=== PATIENT | male | born 1995 | race Caucasian/White ===

== ENCOUNTER 2018-04-17 08:59 | Emergency (ER) | payer OTHER ==
[~2018-04-17] VITALS: Ht 177.8 cm; Wt 104.5 kg
[2018-04-17 09:00] VITALS: BP 156/88
[2018-04-17] MEDS ORDERED: FLUORESCEIN OPHTH 1 MG STRIP OU ONE (09:30)
[2018-04-17] MEDS ORDERED: TETRACAINE 0.5% OPHTH SOLN 4ML OU ONE (09:30)
[2018-04-17] MEDS ORDERED: PRED20TA PO (09:43)
== END 2018-04-17 09:48 | disposition home or self-care (01) ==
LOC: M ED 08:59
DX: L30.9 Dermatitis, unspecified (principal); H05.223 Edema of bilateral orbit; H57.89 Other specified disorders of eye and adnexa; Q82.4 Ectodermal dysplasia (anhidrotic)

== ENCOUNTER → 2018-12-27 | Outpatient (REF) | payer OTHER ==
[~2018-12-27] MED LIST: PRED20TA PO
== END ==
LOC: M SFHCPLAZ 11:48
PROVIDERS: ATTEND Dermatology
DX: R21 Rash and other nonspecific skin eruption (principal)

== ENCOUNTER → 2019-05-17 | Outpatient (CLI) | payer OTHER | LOC: M LABSMTC 09:59 | PROVIDERS: ATTEND Family Medicine | DX: Z11.59 Encounter for screening for other viral diseases (principal); Z20.828 Contact with and (suspected) exposure to other viral communicable diseases ==

== ENCOUNTER 2020-08-11 08:47 | Day surgery (SDC) | payer OTHER ==
[~2020-08-11] VITALS: Ht 177.8 cm; Wt 116.3 kg
[2020-08-11] MEDS ORDERED: NS 1,000 ML IV SCH (10:30)
[2020-08-11 11:54] LABS: BASO # 0.1 10^3/uL (0.0-0.2); BASO % 1.2 % (0.0-1.0); EOS # 0.1 10^3/uL (0.0-0.5); EOS % 0.7 % (0.0-3.0); HEMATOCRIT 45.5 % (42.0-52.0); HEMOGLOBIN 15.2 g/dl (13.5-17.5); LYMPH % 22.7 % (24.0-44.0); MEAN CORPUSCULAR HEMOGLOBIN 28.3 pg (27.0-33.0); MEAN CORPUSCULAR HGB CONC 33.4 g/dl (32.0-36.5); MEAN CORPUSCULAR VOLUME 84.7 fl (80.0-96.0); MONO # 0.6 10^3/uL (0.0-0.8); MONO % 7.2 % (2.0-8.0); NEUTROPHILS # 5.8 10^3/uL (1.5-8.5); NEUTROPHILS % 67.6 % (36.0-66.0); PLATELET COUNT, AUTOMATED 266 10^3/uL (150-450); RED BLOOD COUNT 5.37 10^6/uL (4.30-6.10); WHITE BLOOD COUNT 8.6 10^3/uL (4.0-10.0)
[2020-08-11 13:00] LABS: ALBUMIN 4.1 GM/DL (3.2-5.2); BILIRUBIN,DIRECT 0.1 MG/DL (0.0-0.2); BILIRUBIN,TOTAL 0.4 MG/DL (0.2-1.0); TOTAL PROTEIN 7.4 GM/DL (6.4-8.2)
[2020-08-11 15:03] LABS: RSV AMPLIFICATION NEGATIVE (NEGATIVE)
[2020-08-11] MEDS ORDERED: LIDOCAINE 2% 100MG/5ML SDV (FOR ANES.) As Ordered ONE (17:01)
[2020-08-11] MEDS ORDERED: propofoL 200 MG/20 ML VIAL As Ordered ONE (17:01)
[2020-08-11] MEDS ORDERED: MIDAZOLAM INJ 2MG/2ML VIAL (J2250 PER 1MG) As Ordered ONE (17:02)
[2020-08-11] MEDS ORDERED: fentaNYL 100 MCG/2 ML INJECTION (J3010) As Ordered ONE (17:02)
[2020-08-11] MEDS ORDERED: SUCCINYLCHOLINE 100 MG/5 ML SYRINGE (J0330) As Ordered ONE (18:21)
[2020-08-11] MEDS ORDERED: ONDANSETRON 4MG/2ML VIAL IV PRN (18:35)
[2020-08-11] MEDS ORDERED: LR 1,000 ML IV SCH (18:35)
--- NOTE | 2020-08-11 18:53 | ROOR ---
Patient Name: Jose M Luis Procedure Date: 08/11/2020 4:46 PM Date of : 1995 Age: 25 Room: Main OR Gender: Male Note Status: Finalized Procedure: Upper GI endoscopy Indications: Hematemesis Providers: Eric Jj MD Referring MD: 3. Emergency Dept 3. Emergency Dept Requesting Provider: Medicines: Monitored Anesthesia Care Complications: No immediate complications. Procedure: Pre-Anesthesia Assessment: - Prior to the procedure, a History and Physical was performed, and patient medications and allergies were reviewed. The patient is competent. The risks and benefits of the procedure and the sedation options and risks were discussed with the patient. All questions were answered and informed consent was obtained. Patient identification and proposed procedure were verified by the physician, the nurse and the anesthesiologist in the procedure room. Mental Status Examination: alert and oriented. Airway Examination: normal oropharyngeal airway and neck mobility. Respiratory Examination: clear to auscultation. CV Examination: normal. Prophylactic Antibiotics: The patient does not require prophylactic antibiotics. Prior Anticoagulants: The patient has taken no previous anticoagulant or antiplatelet agents. ASA Grade Assessment: II - A patient with mild systemic disease. After reviewing the risks and benefits, the patient was deemed in satisfactory condition to undergo the procedure. The anesthesia plan was to use monitored anesthesia care (MAC). Immediately prior to administration of medications, the patient was re-assessed for adequacy to receive sedatives. The heart rate, respiratory rate, oxygen saturations, blood pressure, adequacy of pulmonary ventilation, and response to care were monitored throughout the procedure. The physical status of the patient was re-assessed after the procedure. The Endoscope was introduced through the mouth, and advanced to the second part of duodenum. The upper GI endoscopy was accomplished without difficulty. The patient tolerated the procedure well. Findings: LA Grade A (one or more mucosal breaks less than 5 mm, not extending between tops of 2 mucosal folds) esophagitis with no bleeding was found in the distal esophagus. Patchy moderate inflammation characterized by congestion (edema), erythema, friability and granularity was found in the gastric fundus and in the gastric antrum. Biopsies were taken with a cold forceps for Helicobacter pylori testing. Verification of patient identification for the specimen was done by the physician and nurse using the patient's name, date and medical record number. Estimated blood loss was minimal. The duodenal bulb and second portion of the duodenum were normal. Impression: - LA Grade A reflux esophagitis. - Gastritis. Biopsied. - Normal duodenal bulb and second portion of the duodenum. Recommendation: - Patient has a contact number available for emergencies. The signs and symptoms of potential delayed complications were discussed with the patient. Return to normal activities tomorrow. Written discharge instructions were provided to the patient. - High fiber diet. - Continue present medications. - Await pathology results. - Use Pepcid (famotidine) 20 mg PO Twice daily ( take event marketing coordinator on empty stomach and at bedtime) for 3 months. - Use sucralfate suspension 1 gram PO BID for 4 weeks. - Return to GI clinic in [facility] (address [address], [address], [place], [facility]) in 4 -- 6 weeks. Please call GI clinic @ [phone] for apppointment date and time. - Return to primary care physician. Procedure Code(s): --- Professional --- 20376, Esophagogastroduodenoscopy, flexible, transoral; with biopsy, single or multiple Diagnosis Code(s): --- Professional --- K21.0, Gastro-esophageal reflux disease with esophagitis K29.70, Gastritis, unspecified, without bleeding K92.0, Hematemesis CPT copyright 2019 [employer]. All rights reserved. The codes documented in this report are preliminary and upon dough mixer operator review may be revised to meet current compliance requirements. Eric Jj MD Eric Jj MD 08/11/2020 6:52:53 PM Electronically signed by Eric Jj MD Number of Addenda: 0 Note Initiated On: 08/11/2020 4:46 PM Estimated Blood Loss: Estimated blood loss was minimal.
[2020-08-11 19:25] VITALS: BP 155/74
== END 2020-08-11 19:25 | disposition home or self-care (01) ==
LOC: M ED 08:47 → M SDC 08:48
PROVIDERS: ATTEND Internal Medicine Gastroenterology
DX: K21.00 Gastro-esophageal reflux disease with esophagitis, without bleeding (principal); K29.70 Gastritis, unspecified, without bleeding; K92.0 Hematemesis; H05.10 Unspecified chronic inflammatory disorders of orbit; Q82.4 Ectodermal dysplasia (anhidrotic); Z91.040 Latex allergy status; Z79.899 Other long term (current) drug therapy
CPT/HCPCS: 43239; 80047; 80076; 83690; 85025; 87631; 88305; 96360; 99284; J0330; J2250; J3010

== ENCOUNTER → 2021-03-04 | Outpatient (REF) | LOC: M LABSMTC 11:01 | PROVIDERS: ATTEND Pediatrics | DX: Z11.52 Encounter for screening for COVID-19 (principal) ==

== ENCOUNTER 2022-08-07 07:03 | Emergency (ER) | payer BC, OTHER ==
[~2022-08-07] VITALS: Ht 177.8 cm; Wt 102.3 kg
[2022-08-07] MEDS ORDERED: IBUP200T46 PO (07:13)
[2022-08-07] MEDS ORDERED: ACET-683 PO (07:13)
[2022-08-07] MEDS ORDERED: AMOX875T2 PO (07:24)
[2022-08-07] MEDS ORDERED: AUGMENTIN 875 MG TAB PO ONE (07:25)
[2022-08-07] MEDS ORDERED: HYDR-3713 PO (07:27)
[2022-08-07 07:32] VITALS: BP 137/85; TEMP 98.4; O2SAT 99
== END 2022-08-07 07:42 | disposition home or self-care (01) ==
LOC: M ED 07:03
DX: K04.7 Periapical abscess without sinus (principal)